=== PATIENT | female | born 1965 | race Caucasian/White ===

== ENCOUNTER 2018-01-19 18:17 | Observation (INO) ==
[2018-01-19] MEDS ORDERED: Ipratropium/Albuterol Neb 3 ML IH ONE (18:26)
[2018-01-19] MEDS ORDERED: methylPREDNISolone 125 MG/2 ML VIAL IVP ONE (18:26)
--- NOTE | 2018-01-19 18:30 | Emergency Department Note ---
Disposition Clinical Impression: Fibromyalgia Chest pain Qualifiers: Chest pain type: unspecified Qualified Code(s): R07.9 - Chest pain, unspecified Dyspnea Qualifiers: Dyspnea type: unspecified Qualified Code(s): R06.00 - Dyspnea, unspecified Disposition: Admitted As Inpatient Condition: Fair Time of Disposition: 20:10 SOB HPI - General Chief Complaint: ED Shortness of Breath/Dyspnea Stated Complaint: SILVINO Time Seen by Provider: 01/19/18 18:26 Source: patient Mode of arrival: ambulatory Limitations: no limitations Nursing Notes Reviewed: Yes Vital Signs Reviewed: Yes - History of Present Illness 52-year-old female with history COPD he has had progressive shortness of breath. States she has shortness of breath routinely but it is getting progressively worse. Has had a cough. She does not think she has had a fever. 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 illness Severity: moderate Consistency/Duration: constant Improves with: nothing Worsens with: exertion Known history of: COPD Associated symptoms: Reports: chest pain (Up into the neck) Treatment prior to arrival: none Cough Description: Involuntary Cough Frequency: Intermittent - Related Data Previous Rx's Medication Instructions Recorded Dicyclomine [Bentyl] 10 mg PO QID PRN #20 capsule 12/04/16 Ondansetron HCl [Zofran] 4 mg PO Q6HR PRN #20 tablet 12/04/16 Allergies Allergy/AdvReac Type Severity Reaction Status Date / Time No Known Allergies Allergy Verified 06/21/16 08:18 All systems ED: reviewed and negative except as stated. Constitutional: Denies: fever, chills, weakness, weight change Eyes: Denies: eye pain, eye discharge, vision change ENT ED: Denies: ear pain, throat pain, dental pain, hearing loss, epistaxis, congestion, dysphagia Cardiovascular: Reports: chest pain. Denies: palpitations, dyspnea on exertion , edema, syncope Respiratory: Reports: cough, dyspnea, wheezes. Denies: hemoptysis, stridor Gastrointestinal: Denies: abdominal pain, nausea, vomiting, diarrhea, constipation, hematemesis, melena, hematochezia Genitourinary: Denies: dysuria, frequency, hematuria, discharge Musculoskeletal: Denies: back pain, neck pain, arthralgia, myalgia Integumentary: Denies: rash, abrasion, lesions Neurological: Denies: headache, weakness, numbness, paresthesias, confusion, abnormal gait, vertigo Psychiatric: Denies: anxiety, depression, suicidal thoughts, homicidal thoughts , auditory hallucinations, visual hallucinations Endocrine: Denies: fatigue Hematological/Lymphatic: Denies: easy bleeding, easy bruising Allergic/Immunologic: Denies: facial swelling, urticaria Past Medical History - Past Medical History Medical history: Reports: COPD, coronary artery disease, diabetes, GERD, hyperlipidemia, hypertension Surgical history: Reports: appendectomy, other Psychiatric history: Reports: anxiety, depression - Social History Smoking Status: Current every day smoker Smokeless Tobacco Status: No Alcohol use: Reports: none Drug use: Reports: none Physical Exam - General Limitations: no limitations General appearance: alert - Head Head exam: atraumatic, normocephalic, normal inspection - Eye Eye exam: Present: normal appearance, PERRL, EOMI - ENT ENT exam: normal exam, normal oropharynx, mucous membranes moist - Neck Neck exam: Present: normal inspection, full ROM, trachea midline - Chest Chest inspection: Present: normal inspection, symmetric chest wall rise - Respiratory Respiratory exam: Present: wheezes - Cardiovascular Cardiovascular exam: Present: regular rate, normal rhythm, normal heart sounds - Abdominal Exam Abdominal exam: Present: soft, Non-Tender. Absent: tenderness, distention, guarding, rebound, rigidity - Extremities Exam Extremities exam: Present: normal inspection, full ROM. Absent: tenderness, pedal edema - Expanded Lower Extremity Exam Neurovascular/Tendon exam: Absent: motor deficit, sensory deficit, tendon deficit Gait: observed and normal - Back Exam Back exam: Present: normal inspection, full ROM. Absent: tenderness - Neurological Exam Neurological exam: Present: alert, oriented X3 - Psychiatric Psychiatric exam: Present: normal affect, normal mood - Skin Skin exam: Present: warm, dry, intact, normal color Course - Reevaluation(s) Reevaluation #1: 52-year-old diabetic who complains of some intermittent chest pain exertional dyspnea. She has had no recent cardiac workup. Initial troponin is negative the patient will be admitted. Time: 20:09 - Consultations Consultation #1: Discussed wh Dr. Marsh Time: 20:09 Consultation #2: [facility] CT abd pel with contrast, ordered and the hospitalist will check the results. Time: 20:22 Vital Signs Temperature 98.1 F 01/19/18 18:19 Pulse Rate 101 01/19/18 18:19 Respiratory Rate 18 01/19/18 18:19 Blood Pressure 165/80 01/19/18 18:19 O2 Sat by Pulse Oximetry 97 01/19/18 18:19 Temperature 98.1 F 01/19/18 18:19 Pulse Rate 101 01/19/18 18:19 Respiratory Rate 18 01/19/18 18:46 Blood Pressure 165/80 01/19/18 18:19 O2 Sat by Pulse Oximetry 96 01/19/18 18:46 Oxygen Delivery Oxygen Delivery Room Air Shortness of Breath/Dyspnea - Lab Data Lab results reviewed: Yes I reviewed the patient's lab results. Result diagrams: 01/19/18 19:36 01/19/18 19:36 Lab Results 01/19/18 01/19/18 01/19/18 Range/Units 19:36 19:36 19:36 WBC 8.3 (4.3-11.1) K/mcL RBC 4.12 (3.82-4.97) M/mcL Hgb 10.4 L (11.5-15.4) g/dL Hct 34.8 L (35.3-44.9) % MCV 84.5 (83.0-100.0) fL MCH 25.2 L (28.0-33.3) pg MCHC 29.9 L (31.6-35.5) g/dL RDW 17.4 H (11.5-14.5) % Plt Count 294 (140-400) K/mcL MPV 9.5 (9.4-12.4) fL Immature Gran % 0.4 (0-4) % Seg Neutrophils % 56.9 % Lymphocytes % 34.2 % Monocytes % 7.0 % Eosinophils % 1.0 % Basophils % 0.5 % Neutrophils # 4.8 (1.6-8.9) K/mcL Lymphocytes # 2.9 (0.6-4.6) K/mcL Monocytes # 0.6 (0.0-1.3) K/mcL Eosinophils # 0.1 (0.0-0.6) K/mcL Basophils # 0.0 (0.0-0.2) K/mcL Sodium 131 L (136-145) mEq/L Potassium 4.5 (3.5-5.1) mEq/L Chloride 99 (98-107) mEq/L Carbon Dioxide 25 (23-29) mEq/L BUN 13 (6-20) mg/dL Creatinine 0.75 (0.60-1.20) mg/dL Est GFR ( Amer) > 60 (> 60) Est GFR (Non-Af Amer) > 60 (> 60) BUN/Creatinine Ratio 17 (6-26) Glucose 145 H (70-105) mg/dL Calculated Osmolality 275 L (280-300) Lactic Acid 2.0 (0.5-2.2) mmol/L Calcium 9.7 (8.6-10.3) mg/dL Total Bilirubin (0.3-1.0) mg/dL Direct Bilirubin (0.0-0.2) mg/dL Indirect Bilirubin (0.0-1.2) mg/dL AST (13-39) Units/L ALT (7-52) Units/L Alkaline Phosphatase (34-104) Units/L Troponin I < 0.03 (< 0.04) ng/mL B-Natriuretic Peptide (Less than 100) pg/mL Serum Total Protein (6.4-8.9) g/dL Albumin (3.5-5.7) g/dL Globulin (2.4-3.5) g/dL Albumin/Globulin Ratio (1.1-2.2) Amylase (29-103) Units/L Lipase (11-82) Units/L 01/19/18 01/19/18 Range/Units 19:36 19:36 WBC (4.3-11.1) K/mcL RBC (3.82-4.97) M/mcL Hgb (11.5-15.4) g/dL Hct (35.3-44.9) % MCV (83.0-100.0) fL MCH (28.0-33.3) pg MCHC (31.6-35.5) g/dL RDW (11.5-14.5) % Plt Count (140-400) K/mcL MPV (9.4-12.4) fL Immature Gran % (0-4) % Seg Neutrophils % % Lymphocytes % % Monocytes % % Eosinophils % % Basophils % % Neutrophils # (1.6-8.9) K/mcL Lymphocytes # (0.6-4.6) K/mcL Monocytes # (0.0-1.3) K/mcL Eosinophils # (0.0-0.6) K/mcL Basophils # (0.0-0.2) K/mcL Sodium (136-145) mEq/L Potassium (3.5-5.1) mEq/L Chloride (98-107) mEq/L Carbon Dioxide (23-29) mEq/L BUN (6-20) mg/dL Creatinine (0.60-1.20) mg/dL Est GFR ( Amer) (> 60) Est GFR (Non-Af Amer) (> 60) BUN/Creatinine Ratio (6-26) Glucose (70-105) mg/dL Calculated Osmolality (280-300) Lactic Acid (0.5-2.2) mmol/L Calcium (8.6-10.3) mg/dL Total Bilirubin 0.3 (0.3-1.0) mg/dL Direct Bilirubin 0.0 (0.0-0.2) mg/dL Indirect Bilirubin 0.3 (0.0-1.2) mg/dL AST 22 (13-39) Units/L ALT 28 (7-52) Units/L Alkaline Phosphatase 79 (34-104) Units/L Troponin I (< 0.04) ng/mL B-Natriuretic Peptide 7 (Less than 100) pg/mL Serum Total Protein 7.4 (6.4-8.9) g/dL Albumin 4.3 (3.5-5.7) g/dL Globulin 3.1 (2.4-3.5) g/dL Albumin/Globulin Ratio 1.4 (1.1-2.2) Amylase 27 L (29-103) Units/L Lipase 49 (11-82) Units/L - Radiology Data Radiology results reviewed: Yes I reviewed the patient's radiology results. Chest X-Ray 01/19/18 18:26 IMPRESSION: No acute process. D/ / Thang De Leon MD / Thang De Leon MD Interpreting Provider: Thang De Leon MD Abdomen/Pelvis CT 01/19/18 21:30 IMPRESSION: No specific CT abnormality is appreciated. D/ / Naun Bledsoe / Naun Bledsoe Interpreting Provider: Naun Bledsoe - EKG Data EKG attestation: Yes I reviewed and interpreted this EKG. EKG shows normal: Reports: sinus rhythm Rate: Reports: normal Rhythm: Reports: NSR [place]/QRS: Reports: normal Interpretation: Reports: no acute changes
[2018-01-19 19:44] LABS: Basophils % 0.5 %; Eosinophils # 0.1 K/mcL (0.0-0.6); Hematocrit 34.8 % (35.3-44.9); Hemoglobin 10.4 g/dL (11.5-15.4); Immature Granulocytes % 0.4 % (0-4); Lymphocytes # 2.9 K/mcL (0.6-4.6); Lymphocytes % 34.2 %; Mean Corpuscular HGB Conc 29.9 g/dL (31.6-35.5); Mean Corpuscular Hemoglobin 25.2 pg (28.0-33.3); Mean Corpuscular Volume 84.5 fL (83.0-100.0); Mean Platelet Volume 9.5 fL (9.4-12.4); Monocytes # 0.6 K/mcL (0.0-1.3); Neutrophils # 4.8 K/mcL (1.6-8.9); Platelet Count 294 K/mcL (140-400); Red Blood Count 4.12 M/mcL (3.82-4.97); Red Cell Distribution Width 17.4 % (11.5-14.5); Segmented Neutrophils % 56.9 %
[2018-01-19 20:01] LABS: Albumin 4.3 g/dL (3.5-5.7); Albumin/Globulin Ratio 1.4 (1.1-2.2); Bilirubin,Indirect 0.3 mg/dL (0.0-1.2); Bilirubin,Total 0.3 mg/dL (0.3-1.0); Globulin 3.1 g/dL (2.4-3.5); Total Protein 7.4 g/dL (6.4-8.9)
[2018-01-19 20:03] LABS: Troponin I < 0.03 ng/mL (< 0.04)
[2018-01-19 20:06] LABS: BUN/Creatinine Ratio 17 (6-26); Blood Urea Nitrogen 13 mg/dL (6-20); Calcium 9.7 mg/dL (8.6-10.3); Carbon Dioxide 25 mEq/L (23-29); Chloride 99 mEq/L (98-107); Glucose 145 mg/dL (70-105); Osmolality,Calculated 275 (280-300); Potassium 4.5 mEq/L (3.5-5.1); Sodium 131 mEq/L (136-145); eGFR For African Americans > 60 (> 60); eGFR For Non-African Americans > 60 (> 60)
[2018-01-19] MEDS ORDERED: Acetaminophen 325 MG TABLET PO PRN (22:35)
[2018-01-19] MEDS ORDERED: *HR* HYDROcodone/Acet 5/325 mg TABLET PO PRN (22:35)
[2018-01-19] MEDS ORDERED: Naloxone 0.4 MG/ML INJ IVP PRN (22:35)
[2018-01-19] MEDS ORDERED: 0.9 % Sodium Chloride 1,000 ML IVC SCH (22:45)
--- NOTE | 2018-01-19 22:50 | Internal Med History&Physical ---
Date of Encounter: 01/20/18 Time of Encounter: 22:50 Assessment and Plan (1) Chest pain Current visit: Yes Status: Acute Qualifiers: Chest pain type: unspecified Qualified Code(s): R07.9 - Chest pain, unspecified (2) Dyspnea Current visit: Yes Status: Acute Patient has ongoing chest pain/pressure. She also has dyspnea. On examination she has polyphonic wheezes. Abdominal examination is benign Noted that CT abdomen: No acute findings. Plan: Admitted as an observation. We will treat as a COPD exacerbation. We will cycle troponins 3. Echocardiogram I have examined this patient in the emergency room #18. Plan of care expend the patient. She was understanding. Qualifiers: Dyspnea type: unspecified Qualified Code(s): R06.00 - Dyspnea, unspecified (3) Fibromyalgia Current visit: Yes Status: Acute Patient is known to have a fibromyalgia. She has her own medications and scheduling. We will try to follow those and get her medications updated. (4) DVT prophylaxis Current visit: Yes Status: Acute SCD Medical decision making: This patient is a moderate to severe risk of worsening in spite of being on appropriate medication due to the underlying chronic comorbid condition Internal Medicine - H&P: HPI Chief complaint: Chest pain/pressure Admitted From: Emergency Dept Plans for Post Hospital Care: Home History of present illness: Ms. Chu is a 52 year old female who came to emergency department for worsening chest pressure along with left-sided upper quadrant lower quadrant pain. Patient has ongoing abdominal pain for the past 6 months. In last 1 week noted that her pain was persistently getting worse and that was reason she came to emergency room for further evaluation. Patient was supposed to get her ultrasound carotid examination done this morning but she was under so much of chest pressure/abdominal pain that she could not make her appointment. Patient was concerned regarding this chest pressure and arthritis she came to the hospital for further evaluation. She was evaluated in the emergency room. Baseline labs were drawn. She underwent CT scan of the abdomen. She was hospitalized for chest pain to rule out ACS. Past Med Surg Social Fam HX - Past Medical History Medical history: COPD, coronary artery disease, diabetes, GERD, hyperlipidemia, hypertension Psychiatric history: anxiety, depression - Past Surgical History Surgical History: appendectomy, other - Social History Smoking Status: Current every day smoker Smokeless Tobacco Status: No Alcohol use: none Drug use: none - Family History Father Living Status: Cause of : [place] Hx Family Cardiac Disorders: Yes Mother Hx Family Cardiac Disorders: Yes (CAD, stents, stroke) Internal Medicine - H&P: Meds Dicyclomine [Bentyl] 10 mg PO QID PRN #20 capsule 12/04/16 [Rx] Ondansetron HCl [Zofran] 4 mg PO Q6HR PRN #20 tablet 12/04/16 [Rx] 3 Allergy/AdvReac Type Severity Reaction Status Date / Time No Known Allergies Allergy Verified 06/21/16 08:18 All Systems PM: A 10-system review of systems was performed and is negative for pertinent findings except as documented above in the HPI. - Constitutional Constitutional: no chills, no fever(s), no night sweats - EENT Eyes: no change in vision, no discharge, no pain, no photophobia Ears: no ear discharge, no ear pain, no tinnitus Nose, mouth and throat: no dysphagia, no nasal discharge, no neck pain, no sore throat - Cardiovascular Cardiovascular ROS IM: no chest pain, no diaphoresis, no dyspnea, no lightheadedness, no palpitations, no syncope - Respiratory Respiratory: no cough, no dyspnea, no wheezing, no excessive phlegm production - Gastrointestinal Gastrointestinal: no abdominal pain, no diarrhea, no hematemesis, no hematochezia, no melena, no nausea, no vomiting - Genitourinary Genitourinary: no change in urinary stream, no dysuria, no flank pain, no hematuria - Musculoskeletal Musculoskeletal ROS IM: no numbness, no tingling - Integumentary Integumentary IM: no rash, no unusual bruising - Neurological Neurological ROS: no confusion, no convulsions, no focal weakness, no numbness, no tingling, no tremor(s) - Hematologic/Lymphatic Hematologic/Lymphatic: no easy bruising - Constitutional Vitals: Temp Pulse Resp BP Pulse Ox 98.1 F 101 14 149/81 96 01/19/18 18:19 01/19/18 18:19 01/19/18 22:46 01/19/18 22:46 01/19/18 18:46 General appearance: Present: A&O X 3, pleasant, no acute distress, answers questions appropriately - Head Head exam: Present: atraumatic, normocephalic - Eye Eye exam: Present: PERRL, conjuntiva pink, sclera anicteric Pupils: Present: PERRL - Neck Neck exam general surgery: Present: supple, trachea midline. Absent: lymphadenopathy - Respiratory Respiratory exam: Present: CTAB. Absent: accessory muscle use, rales, rhonchi, wheezes - Cardiovascular Cardiovascular exam: Present: RRR, +S1, +S2. Absent: diastolic murmur, gallop, rubs, systolic murmur - GI/Abdominal GI/Abdominal exam: Present: normal bowel sounds, soft, no peritoneal signs. Absent: distended, tenderness Additional comments: Benign abdominal examination - Extremities Exam Extremities exam: Present: warm, radial pulses palpable and symmetrical. Absent : calf tenderness, cyanotic, pedal edema - Neurological Exam Neurological exam: Present: CN II-XII intact, oriented X3, no focal deficits. Absent: pronater drift, facial droop, speech deficit - Skin Skin exam: Present: dry, intact Internal Med - H&P Results - Labs CBC & Chem 7: 01/20/18 01:15 01/20/18 01:15 - Impressions ITS Impressions Abdomen/Pelvis CT 01/19/18 21:30 IMPRESSION: No specific CT abnormality is appreciated. D/ / Naun Bledsoe / Naun Bledsoe Interpreting Provider: Naun Bledsoe
[2018-01-19] MEDS ORDERED: cefTRIAXone 1,000 MG in Water for inj. (sterile) 20 ML 10 ML IVPB SCH (23:00)
[2018-01-19] MEDS ORDERED: Azithromycin 500 MG in D5% in Water 250 ML IVPB SCH (23:00)
[2018-01-19 23:43] VITALS: BP 154/90
[2018-01-20] MEDS ORDERED: Ipratropium/Albuterol Neb 3 ML IH SCH
[2018-01-20] MEDS ORDERED: MethylPREDNISolone 40 MG/ML VIAL IVP SCH
[2018-01-20] MEDS ORDERED: cefTRIAXone 1,000 MG in Water for inj. (sterile) 20 ML 10 ML IVPB SCH (01:00)
[2018-01-20] MEDS ORDERED: Nicotine 14 MG PATCH.TD24 TD SCH (01:00)
[2018-01-20 01:38] LABS: Eosinophils % 0.1 %; Hematocrit 36.5 % (35.3-44.9); Immature Granulocytes % 1.1 % (0-4); Lymphocytes % 11.4 %; Mean Corpuscular HGB Conc 30.1 g/dL (31.6-35.5); Mean Corpuscular Hemoglobin 25.1 pg (28.0-33.3); Mean Corpuscular Volume 83.3 fL (83.0-100.0); Mean Platelet Volume 9.8 fL (9.4-12.4); Monocytes % 0.7 %; Platelet Count 356 K/mcL (140-400); Red Blood Count 4.38 M/mcL (3.82-4.97); Red Cell Distribution Width 17.3 % (11.5-14.5); Segmented Neutrophils % 86.4 %
[2018-01-20 01:39] LABS: Basophils % 0.3 %; Lymphocytes # 1.2 K/mcL (0.6-4.6); Monocytes # 0.1 K/mcL (0.0-1.3); Neutrophils # 9.3 K/mcL (1.6-8.9)
[2018-01-20 01:43] LABS: Prothrombin Time 10.9 Seconds (9.4-12.1)
[2018-01-20] MEDS ORDERED: Dextrose Gel 15 GM/37.5 ML TUBE PO PRN ×2 (01:45)
[2018-01-20] MEDS ORDERED: *HR* Dextrose 50 % in Water (Syg) 50 ML SYRINGE IVP PRN (01:45)
[2018-01-20] MEDS ORDERED: D5% in Water 1,000 ML IVC PRN (01:45)
[2018-01-20 01:46] LABS: Activated Partial Thrombo Time 32.4 Seconds (26.0-36.0)
[2018-01-20 02:03] LABS: Alanine Aminotransferase 29 Units/L (7-52); Albumin 4.5 g/dL (3.5-5.7); Albumin/Globulin Ratio 1.5 (1.1-2.2); Alkaline Phosphatase 91 Units/L (34-104); Aspartate Amino Transferase 20 Units/L (13-39); BUN/Creatinine Ratio 19 (6-26); Bilirubin,Total 0.3 mg/dL (0.3-1.0); Blood Urea Nitrogen 15 mg/dL (6-20); Calcium 9.9 mg/dL (8.6-10.3); Carbon Dioxide 20 mEq/L (23-29); Chloride 99 mEq/L (98-107); Chol/HDL Ratio 9.8 (0-4.9); Cholesterol 373 mg/dL (< 200); Globulin 3.1 g/dL (2.4-3.5); Glucose 378 mg/dL (70-105); HDL Cholesterol 38 mg/dL (40-59); Magnesium 1.9 mg/dL (1.6-2.6); Osmolality,Calculated 286 (280-300); Potassium 5.1 mEq/L (3.5-5.1); Sodium 130 mEq/L (136-145); Total Protein 7.6 g/dL (6.4-8.9); Triglycerides 947 mg/dL (< 150); eGFR For African Americans > 60 (> 60); eGFR For Non-African Americans > 60 (> 60)
--- NOTE | 2018-01-20 02:21 | Discharge Summary ---
- NOTES TO OUTPATIENT PROVIDER Notes to Outpatient Provider: This patient left AGAINST MEDICAL ADVICE. I along with patient's RN Ms Barker and Charge nurse Ms Kamara went to her room. Explained to the patient at length regarding her risk/benefit/advantage/ disadvantage of signing AMA paperwork. Patient insisted to leave the hospital. She understood the risk of leaving hospital AGAINST MEDICAL ADVICE which can be heart attack/respiratory failure/. Patient signed AMA from and left the hospital Orders not resulted at time of discharge: Pending orders 01/19/18 22:46 EV echocardiogram Routine 01/20/18 07:30 Troponin I Q6H 01/20/18 13:30 Troponin I Q6H Date of Encounter: 01/20/18 Time of Encounter: 02:19 - Discharge Diagnosis (1) Chest pain Priority: Primary Status: Acute Qualifiers: Chest pain type: unspecified Qualified Code(s): R07.9 - Chest pain, unspecified (2) Dyspnea Priority: Primary Status: Acute Qualifiers: Dyspnea type: unspecified Qualified Code(s): R06.00 - Dyspnea, unspecified (3) Fibromyalgia Priority: Secondary Status: Acute (4) DVT prophylaxis Priority: Secondary Status: Acute Hospital course: Ms. Chu is a 52 year old female who came to emergency department for worsening chest pressure along with left-sided upper quadrant lower quadrant pain. Patient has ongoing abdominal pain for the past 6 months. In last 1 week noted that her pain was persistently getting worse and that was reason she came to emergency room for further evaluation. Patient was supposed to get her ultrasound carotid examination done this morning but she was under so much of chest pressure/abdominal pain that she could not make her appointment. Patient was concerned regarding this chest pressure and arthritis she came to the hospital for further evaluation. She was evaluated in the emergency room. Baseline labs were drawn. She underwent CT scan of the abdomen. She was hospitalized for chest pain to rule out ACS. Hospital course. Patient was hospitalized. Order was placed. She was treated as a COPD exacerbation along with chest pain to rule out ACS protocol. I was called by MARCO ANTONIO Barker around 2 AM. I was told that patient would like to leave AGAINST MEDICAL ADVICE. I along with patient's RN Ms Barker and Charge nurse Ms Kamara went to her room. Explained to the patient at length regarding her risk/benefit/advantage/ disadvantage of signing AMA paperwork Patient insisted to leave the hospital She understood the risk of leaving hospital AGAINST MEDICAL ADVICE which can be heart attack/respiratory failure/. Patient signed AMA from and left the hospital. I was informed by MARCO ANTONIO Barker that patient's troponin is a critical value now. Her first troponin was negative. Her second troponin is 0.06. Patient already left the hospital. I personally called patient on her cell phone [phone] at 2:27 am. I spoke with the patient. I informed patient about her critical troponin. I explained patient that this can be life-threatening. I requested her to come back so that we can monitor her very closely. Patient refused to come back and insisted that she is going to go home. I informed patient that if she changes her mind she should go to the emergency room and we will be happy to take care of her. Patient informed me that she will think about it. - Time Spent with Patient Total time spent providing and/or coordinating discharge services: - Discharge Medications Home Medications: Dicyclomine [Bentyl] 10 mg PO QID PRN #20 capsule 12/04/16 [Rx] Ondansetron HCl [Zofran] 4 mg PO Q6HR PRN #20 tablet 12/04/16 [Rx] Allergies/Adverse Reactions: 3 Allergy/AdvReac Type Severity Reaction Status Date / Time No Known Allergies Allergy Verified 06/21/16 08:18 Date of admission: 01/19/18 20:24 Primary care physician: Paola Engel, Discharging clinician: Luis Marsh - Constitutional Vitals: Temp Pulse Resp BP Pulse Ox 97.9 F 93 16 154/90 97 01/19/18 23:41 01/19/18 23:41 01/19/18 23:41 01/19/18 23:41 01/19/18 23:41 General appearance: Present: A&O X 3, pleasant, no acute distress, answers questions appropriately - Head Head exam: Present: atraumatic, normocephalic - Eye Eye exam: Present: PERRL, conjuntiva pink, sclera anicteric Pupils: Present: PERRL - Neck Neck exam general surgery: Present: supple, trachea midline. Absent: lymphadenopathy - Respiratory Respiratory exam: Present: CTAB. Absent: accessory muscle use, rales, rhonchi, wheezes - Cardiovascular Cardiovascular exam: Present: RRR, +S1, +S2. Absent: diastolic murmur, gallop, rubs, systolic murmur - GI/Abdominal GI/Abdominal exam: Present: normal bowel sounds, soft, no peritoneal signs. Absent: distended, tenderness - Extremities Exam Extremities exam: Present: warm, radial pulses palpable and symmetrical. Absent : calf tenderness, cyanotic, pedal edema - Neurological Exam Neurological exam: Present: CN II-XII intact, oriented X3, no focal deficits. Absent: pronater drift, facial droop, speech deficit - Skin Skin exam: Present: dry, intact - Patient Status Disposition: Left Against Medical Advice Condition: Fair Functional capacity at discharge: independent ambulation Overall status at discharge: patient is not back to baseline - Discharge Instructions Follow Up With: Paola Engel MD [Primary Care Provider] - - Diet and Activity Activity: other Diet: diabetic diet, low fat, low cholesterol
[2018-01-20] MEDS ORDERED: Insulin LISPRO 300 UNITS/3 ML VIAL SQ SCH (07:30)
--- NOTE | 2018-01-22 20:04 | Electrocardiograph Report ---
[place] [id number] Test Date: 2018-01-19 Pat Name: Dawna Chu Department: 104 Room: 3B Gender: F Cord Maker: OTIS : 1965 Requested By: Jose Franz Order Number: [id number] Reading MD: Rach Yusuf Measurements Intervals [place] Rate: 82 P: 1 RI: 152 QRS: 75 QRSD: 76 T: 45 QT: 326 QTc: 365 Interpretive Statements SINUS RHYTHM Electronically Signed On 01-22-2018 20:02:57 EST by Rach Yusuf
== END 2018-01-20 02:00 | disposition left against medical advice (07) ==
LOC: 3BNU 18:17 → EMEROO 18:17 → 3BNU 23:00
PROVIDERS: ADMIT Internal Medicine; ATTEND Registered Nurse

== ENCOUNTER 2018-06-27 06:06 | Inpatient (IN) ==
[2018-06-27] MEDS ORDERED: CeFAZolin Syr 2,000MG/20 ML 2,000 MG/20 ML SYRINGE IVPB ONE (06:38)
[2018-06-27] MEDS ORDERED: Albuterol 2.5 MG/3 ML NEBULIZER IH ONE (06:38)
[2018-06-27] MEDS ORDERED: Albuterol 2.5 MG/3 ML NEBULIZER ONE (06:42)
[2018-06-27] MEDS ORDERED: Heparin 1,000 UNITS/500 mL 500 ML ONE (06:52)
[2018-06-27] MEDS ORDERED: Heparin 1,000 UNITS/500 mL 1,500 ML ONE (07:12)
[2018-06-27] MEDS ORDERED: Lidocaine 1% 20 ML MDV ONE (07:12)
--- NOTE | 2018-06-27 07:19 | Anesthesia Evaluation PreOp ---
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: Other (chronic back pain) Other Medical History: Hepatic (fatty liver), Diabetes Type II, GERD, Other ( anxiety) Anesthesia History: No Prior Anesthetic Complications, Past Anesthesia Alcohol Use: none Drug use: prescription drug abuse Medications and Allergies Albuterol Sulfate [Albuterol Inhaler] 1 puff IH Q6HR PRN 06/21/18 [History] Albuterol Sulfate [Proair Hfa] 2 puff IH Q4H PRN 06/21/18 [History] Alprazolam [Xanax] 2 mg PO Q8H PRN 06/21/18 [History] Aspirin [Adult Aspirin Regimen] 81 mg PO DAILY 06/21/18 [History] Liraglutide [Victoza 2-Juve] 1.8 mg SQ DAILY 06/21/18 [History] Losartan Potassium [Cozaar] 0.5 tab PO DAILY 06/21/18 [History] Metformin HCl [Glumetza] 1,000 mg PO BID 06/21/18 [History] Omeprazole [PriLOSEC] 40 mg PO DAILY 06/21/18 [History] Sertraline [Zoloft] 100 mg PO DAILY 06/21/18 [History] Gabapentin [Neurontin] 800 mg PO TID 06/27/18 [History] 3 Allergy/AdvReac Type Severity Reaction Status Date / Time No Known Allergies Allergy Verified 06/21/16 08:18 - Meds/Allergy Pre-op Review Medications Reviewed: Yes Allergies Reviewed: Yes Beta Blockers on Current Med List: No Anesthesia Results - Labs Laboratory Tests 06/13/18 06/13/18 06/13/18 13:07 13:07 13:07 WBC 8.2 Hgb 10.1 L Hct 32.6 L Plt Count 279 PT 9.3 L INR 0.8 APTT 34.0 Sodium 137 Potassium 3.8 BUN 9 Creatinine 0.66 - Imaging EKG: report reviewed (06/13/2018 SINUS RHYTHM) Additional studies: 09/22/2015 Stress Impression: Perfusion imaging was negative for ischemia or infarct. Pharmacologic ECG was negative for ischemia at the level of heart rate achieved. Patient had chest pain with pharmacologic stress. Normal hemodynamic response. No arrhythmias noted with stress. Gated EF = 68%. Recommend clinical correlation. Anesthesia Exam O2 Sat Height 1.68 m Weight 92.533 kg O2 Sat by Pulse Oximetry 95 O2 Sat by Pulse Oximetry 95 Vital Signs Temp Pulse Resp BP Pulse Ox 98.4 F 97 18 125/66 95 06/27/18 06:57 06/27/18 06:57 06/27/18 06:57 06/27/18 06:57 06/27/18 06:57 Blood Glucose* 195 Height: 5'6'' Weight: 204 lbs NPO (# of Hours): 8 Pain Scale: 0 Pain Scale Used: Numeric (1 - 10) - HEENT Pupil (Motor): EOMI Mallampati: II Teeth: Normal, Missing Oral Opening: Greater than 3 - WELFARE INVESTIGATOR LOC: Oriented WELFARE INVESTIGATOR Motor: Normal RUE, Normal LUE, Normal RLE, Normal Face, Deficit LLE WELFARE INVESTIGATOR Sensory: Normal: RUE, LUE, Face, Deficit: RLE, LLE - Cardiac Rhythm: Regular Murmur: None - Pulmonary Breath Sounds: bilateral Clear Respiratory Effort: Symmetrical Anesthesia Assess/Plan ASA Score: 3 Modified [place] Scale for Level of Consciousness: Cooperative, oriented, and tranquil Anesthetic Plan: General Monitoring Plan: Standard Monitors, A-Line Recovery Plan: PACU
--- NOTE | 2018-06-27 07:27 | History & Physical Report ---
Date of Encounter: 06/27/18 Time of Encounter: 07:26 24 Hour HP Update - Instructions Instructions: If the History and Physical is less than 30 days old and was completed prior to A.M. admission and or procedure and has NOT been updated on calendar day of procedure please complete this update prior to performing procedure. - Update Patient reports changes in Medical Condition: No Changes in examination, assessment, or condition: No Changes in Medication: No Preop tests/diagnostics Reviewed: Yes Pre-Op MRSA Screen: Negative Surgery Remains Indicated: Yes Consent for Planned Operative Procedure(s) Verified: Yes - Pre-Operative Checklist Preoperative Checklist Indicated: Yes Prophylactic Antibiotic Ordered: Yes Home Medications Include Beta Martinez: No Beta Martinez Taken Today (Day of Surgery): No Beta Martinez Taken Yesterday (Day Prior to Surgery): No Is VTE Prophylaxis Indicated?: Yes
[2018-06-27] MEDS ORDERED: KETAMINE HCL 50 MG/ML SYRINGE IV ONE (07:32)
[2018-06-27] MEDS ORDERED: Dexmedetomidine HCl 400 MCG/100 ML MLS IVC ONE (07:33)
[2018-06-27] MEDS ORDERED: Acetaminophen IV 1,000 MG/100 ML INFUS..BTL ONE (07:33)
[2018-06-27] MEDS ORDERED: *HR* Midazolam HCl 2 MG/2 ML VIAL ONE ×2 (07:37→07:50)
[2018-06-27] MEDS ORDERED: *HR* Propofol 200 MG/20 ML VIAL IVP ONE ×2 (07:37→08:37)
[2018-06-27] MEDS ORDERED: Lidocaine -MPF 2% 2 ML VIAL ONE ×2 (07:38→07:48)
[2018-06-27] MEDS: Ringers Solution, Lactated 1,000 ML IVC SCH ×3 (07:45→11:48)
[2018-06-27] MEDS ORDERED: ceFAZolin 1,000 MG, Sodium Chloride IRRigation 1,000 ML IR ONE (07:45)
[2018-06-27] MEDS ORDERED: *HR* Succinylcholine 200 MG/10 ML VIAL IVP ONE (08:00)
[2018-06-27] MEDS ORDERED: *HR* Rocuronium Bromide 50 MG/5 ML VIAL ONE (08:09)
[2018-06-27] MEDS ORDERED: Ondansetron 4 MG/2 ML VIAL ONE (08:16)
[2018-06-27] MEDS ORDERED: Dexamethasone 4 MG/ML VIAL ONE (08:16)
[2018-06-27] MEDS ORDERED: *HR* Phenylephrine 10 MG/ML VIAL ONE (08:19)
[2018-06-27] MEDS ORDERED: *HR* Heparin 5,000 UNIT/ML VIAL ONE ×2 (09:00→10:22)
[2018-06-27] MEDS ORDERED: *HR* Promethazine 25 MG/ML VIAL IVP PRN (09:01)
[2018-06-27] MEDS ORDERED: *HR* Labetalol 20 MG/4 ML SYRINGE IVP PRN (09:01)
[2018-06-27] MEDS ORDERED: *HR* HYDROmorphone (PF) 1 MG/ML SYRINGE IVP PRN (09:01)
[2018-06-27] MEDS ORDERED: *HR* OxyCODONE Immed Rel 5 MG TABLET PO PRN (09:01)
[2018-06-27] MEDS ORDERED: Ketorolac 30 MG/ML VIAL ONE (09:35)
[2018-06-27] MEDS ORDERED: Neostigmine Methylsulfate 3 MG/3 ML SYRINGE ONE (10:53)
[2018-06-27] MEDS ORDERED: *HR* Metoprolol 5 MG/5 ML VIAL IVP ONE (11:21)
--- NOTE | 2018-06-27 11:31 | Operative Note ---
Date of procedure: 06/27/18 Pre-op diagnosis: right carotid stenosis Post-op diagnosis: same Procedure: right carotid endarterectomy with 8 Fr shunt and bovine patch angioplasty Complications: none Anesthesia: GETA Surgeon: Jacinto Roth Was there an activity assistant present: No Estimated blood loss (cc): 100 Specimen: 0 Condition: stable Disposition: PACU Procedure in Detail: History Dawna Chu is a 52-year-old white female who was seen in the outpatient clinic for carotid disease. Patient had abnormal carotid duplex scan. This then led to a carotid artery angiogram which demonstrated bilateral high-grade carotid stenosis greater on the right side than on the left. The patient now comes to the operating room today for surgery for the first of 2 carotid endarterectomies. Procedure After informed consent was obtained the patient was taken the operating room. General endotracheal anesthesia was established under arterial line pressure monitoring. The right neck was sterilely prepped and draped. A timeout protocol was observed. An oblique incision was then made parallel to the anterior border of the right sternocleidomastoid muscle. Dissection was carried down to the carotid sheath. This was then opened. The nervous structures were identified and preserved. The patient had an unusual configuration with the external carotid artery and its branches placed in a posterior location. In order to correctly dissect and expose the vessel the superior thyroid artery needed to be divided in order to allow rotation of the bulb and common carotid artery. With this done appropriate control was obtained as well as exposure. Vessel loops were placed proximally and the umbilical tape placed proximally. Heparin was given in a dose of 5000 units. After a three-minute delay the vessels were clamped with the internal carotid artery clamped first. Using an 11 blade knife and Moore scissors the artery was opened. An 8-Serbian shunt was then inserted atraumatically. Patency of the shunt was confirmed by the use of intraoperative Doppler. Evaluation of the plaque revealed a high-grade calcific and heterogeneous plaque at the orifice of the right internal carotid artery as depicted by the angiogram. This stenosis was in excess of 90%. The endarterectomy was then begun at the distal aspect of the common carotid artery. Control was obtained and a access plane was then dissected and established circumferentially. Because of the amount of plaque posteriorly the the proximal needed to be extended in order to safely and adequately remove the plaque. Therefore dissection was made around the omohyoid muscle. Controls obtained proximal to the inferior border of the omohyoid muscle. The abnormal hyoid muscle was retracted but not divided. This allowed adequate exposure so that the arteriotomy could be continued more proximally. This allowed appropriate visualization of the plaque and the endarterectomy proximally could then be safely completed. With this accomplished attention was directed distally. As noted above this. Thyroid artery was ligated and divided. The external carotid artery orifice was then endarterectomized. The endarterectomy was then carried up onto the internal carotid artery. Dissection was carried to the endpoint. It was smooth. No tacking sutures were necessary. The bed of the vessels and inspected for residual debris. After this was done a bovine pericardial patch was utilized and was sewn into position using 2 6-0 Prolene sutures. Leaving a small space open on the suture line the 8-Serbian shunt was clamped and divided and removed. The internal was allowed to backbleed and was reclamped. The final few sutures were then placed. The external and common carotid artery were opened and finally the internal was reopened. The patient tolerated this well. There is no periprocedural hemodynamic distress. The wounds were then irrigated. Hemostasis was achieved. A superficial cervical block using half percent Marcaine was performed. The wound was then closed in layers using absorbable suture. There were no intraoperative complications. The patient awoke from anesthesia well and was neurologically intact. She was then transported from the operating room to the recovery room in stable condition following extubation.
--- NOTE | 2018-06-27 12:04 | Anesthesia Evaluation Post Op ---
Date of Encounter: 06/27/18 Time of Encounter: 12:03 - Vital Signs Vital Signs: Vital Signs/O2 Sat, Most Current Temp Pulse Resp BP Pulse Ox 98.9 F 99 17 128/51 93 06/27/18 11:30 06/27/18 11:50 06/27/18 11:50 06/27/18 11:50 06/27/18 11:50 - Lungs Lungs: Clear Ascult./Percussion - Airway Airway: Non-obstructed - Cardiovascular Regular Rate - Mental Status Mental Status: Alert & Oriented, Answers Appropriately - Nausea Vomiting Nausea Vomiting: Not Present - Hydration Hydration: Ice chips, Huerta catheter - Discharge PostOp Status: Transfer Patient to floor
[2018-06-27] MEDS ORDERED: ALPRAZolam 0.5 MG TABLET PO PRN (12:18)
[2018-06-27] MEDS ORDERED: Naloxone 0.4 MG/ML INJ IVP PRN (12:18)
[2018-06-27] MEDS ORDERED: Acetaminophen 325 MG TABLET PO PRN (12:18)
[2018-06-27] MEDS ORDERED: Ondansetron 4 MG/2 ML VIAL IVP PRN (12:18)
[2018-06-27] MEDS: *HR* Metoprolol 5 MG/5 ML VIAL IVP SCH ×2 (13:26→18:00)
[2018-06-27] MEDS: Gabapentin 400 MG CAPSULE PO SCH ×2 (15:53→20:49)
[2018-06-27] MEDS: *HR* Metformin 500 MG TABLET PO SCH (16:07)
[2018-06-27] MEDS: traMADol 50 MG TABLET PO PRN ×2 (16:07→22:28)
[2018-06-27] MEDS: Ibuprofen 600 MG TABLET PO PRN (20:49)
[2018-06-27] MEDS: Nicotine 21 MG PATCH.TD24 TD SCH (20:49)
[2018-06-28] MEDS: *HR* Metoprolol 5 MG/5 ML VIAL IVP SCH ×3 (00:12→11:45)
[2018-06-28] MEDS: traMADol 50 MG TABLET PO PRN ×2 (04:43→11:45)
[2018-06-28 04:48] LABS: Basophils % 0.2 %; Eosinophils % 0.4 %; Hematocrit 26.1 % (35.3-44.9); Hemoglobin 8.1 g/dL (11.5-15.4); Immature Granulocytes % 0.6 % (0-4); Lymphocytes # 2.6 K/mcL (0.6-4.6); Lymphocytes % 23.9 %; Mean Corpuscular Hemoglobin 26.4 pg (28.0-33.3); Mean Platelet Volume 9.7 fL (9.4-12.4); Monocytes # 0.9 K/mcL (0.0-1.3); Monocytes % 8.3 %; Neutrophils # 7.3 K/mcL (1.6-8.9); Platelet Count 239 K/mcL (140-400); Red Blood Count 3.07 M/mcL (3.82-4.97); Red Cell Distribution Width 17.2 % (11.5-14.5); Segmented Neutrophils % 66.6 %
[2018-06-28 05:07] LABS: BUN/Creatinine Ratio 18 (6-26); Blood Urea Nitrogen 9 mg/dL (6-20); Calcium 8.5 mg/dL (8.6-10.3); Carbon Dioxide 24 mEq/L (23-29); Chloride 107 mEq/L (98-107); Glucose 125 mg/dL (70-105); Osmolality,Calculated 300 (280-300); Potassium 3.5 mEq/L (3.5-5.1); Sodium 145 mEq/L (136-145); eGFR For Non-African Americans > 60 (> 60)
[2018-06-28] MEDS: Ibuprofen 600 MG TABLET PO PRN (06:28)
[2018-06-28] MEDS: Gabapentin 400 MG CAPSULE PO SCH (07:56)
[2018-06-28] MEDS: Nicotine 21 MG PATCH.TD24 TD SCH (07:56)
[2018-06-28] MEDS: *HR* Metformin 500 MG TABLET PO SCH (07:56)
[2018-06-28] MEDS ORDERED: Aspirin Enteric Coated 81 MG Tablet PO SCH (09:00)
[2018-06-28] MEDS ORDERED: (Liraglutide [Victoza 2-Pak] 1.8 MG) SQ SCH (09:00)
[2018-06-28 11:16] VITALS: BP 174/74
--- NOTE | 2018-06-28 12:11 | Discharge Summary ---
Orders not resulted at time of discharge: Pending orders 06/26/18 Red Blood Cells [BBK] Routine Date of Encounter: 06/28/18 Time of Encounter: 12:08 - Discharge Diagnosis (1) Carotid artery disease Priority: Primary Status: Acute Comments: Patient has bilateral carotid artery stenosis. Right carotid endarterectomy was performed at this admission. Anticipate patient will have left carotid endarterectomy in approximately 3 weeks. Qualifiers: Carotid artery disease type: stenosis Laterality: bilateral Qualified Code(s): I65.23 - Occlusion and stenosis of bilateral carotid arteries (2) Fibromyalgia Priority: Secondary Status: Chronic Comments: Patient has history of fibromyalgia - Hospital Course Hospital course: Ms. Chu is a 52 year old female With abnormal carotid duplex scan. This led to an angiogram which confirmed bilateral carotid artery stenosis. The right side was more critical and so therefore the patient underwent a right carotid endarterectomy during this admission. The patient tolerated the procedure well. She had no periprocedural complications. Her right neck incision was clean and dry and healing well. She was felt fit for discharge on the afternoon of postoperative day #1. Patient will return to the office in 2 weeks. Anticipate left carotid endarterectomy in 3 weeks. - Time Spent with Patient Total time spent providing and/or coordinating discharge services: - Discharge Medications Home Medications: Albuterol Sulfate [Proair Hfa] 2 puff IH Q4H PRN 06/21/18 [History] Alprazolam [Xanax] 0.5 mg PO Q8H PRN 06/21/18 [History] Aspirin [Adult Aspirin Regimen] 81 mg PO DAILY 06/21/18 [History] Liraglutide [Victoza 2-Juve] 1.8 mg SQ DAILY 06/21/18 [History] Losartan Potassium [Cozaar] 0.5 tab PO DAILY 06/21/18 [History] Omeprazole [PriLOSEC] 40 mg PO DAILY 06/21/18 [History] Sertraline [Zoloft] 100 mg PO DAILY 06/21/18 [History] Albuterol Neb [Proventil Neb] 2.5 mg IH Q6H PRN 06/27/18 [History] Gabapentin [Neurontin] 800 mg PO TID 06/27/18 [History] Metformin HCl 1,000 mg PO BID 06/27/18 [History] Allergies/Adverse Reactions: 3 Allergy/AdvReac Type Severity Reaction Status Date / Time No Known Allergies Allergy Verified 06/21/16 08:18 Date of admission: 06/27/18 12:14 Primary care physician: Paola Engel, Consults: None Procedure(s) Performed: Right carotid endarterectomy with patch angioplasty Discharging clinician: Jacinto Roth Anticipated date of discharge: 06/28/18 Exam Vital Signs, Last 4 Hours Temp Pulse Resp BP Pulse Ox 06/28/18 11:12 98.4 F 79 16 174/74 97 06/28/18 08:12 73 General: Present: Conversant, No Apparent Distress, Well developed, Well nourished HEENT: Present: Atraumatic, Normocephaly, Trachea midline Neck: Absent: JVD, Tracheal deviation Cardiac: Present: Reg Rate and Rhythm Lungs: Present: Normal Breath Sounds Neuro: Present: Alert and responsive, No focal deficits noted, Cranial nerves grossly intact Vascular: Present: Surgical incisions (Right neck incision is clean and dry) - Patient Status Disposition: Home, Self-Care Condition: Good Functional capacity at discharge: independent ambulation Overall status at discharge: patient is progressing back to baseline - Discharge Instructions Follow Up With: Paola Engel MD [Primary Care Provider] - 07/08/18 9:45 am Jacinto Roth MD [Partnered Physician] - 07/10/18 8:30 am Additional Instructions: Keep right neck incision dry for total of 5 days following surgery No lifting greater than 10 pounds. No automobile driving. No manual labor. Use ice pack on right neck for next 2 days at home. Using incentive spirometer at home for the next 2 weeks with a goal of 10 times an hour while awake. Resume usual home medications. - Diet and Activity Activity: increase activity as tolerated Diet: diabetic diet - VTE Documentation of Mechanical Device: Intermittent pneumatic compression device
== END 2018-06-28 13:24 | disposition home or self-care (01) | DRG 24 ==
LOC: SAMDAY 06:06 → 2NNU 12:14
PROVIDERS: ADMIT Surgery Vascular Surgery; ATTEND Surgery Vascular Surgery

== ENCOUNTER 2018-07-18 09:06 | Inpatient (IN) ==
[~2018-07-18 09:06] MED LIST: ceFAZolin 1,000 MG, Sodium Chloride IRRigation 1,000 ML IR ONE
[2018-07-18] MEDS ORDERED: Albuterol 2.5 MG/3 ML NEBULIZER IH ONE (09:37)
[2018-07-18] MEDS ORDERED: CeFAZolin Syr 2,000MG/20 ML 2,000 MG/20 ML SYRINGE IVPB ONE (09:37)
--- NOTE | 2018-07-18 09:46 | History & Physical Report ---
Date of Encounter: 07/18/18 Time of Encounter: 09:45 24 Hour HP Update - Instructions Instructions: If the History and Physical is less than 30 days old and was completed prior to A.M. admission and or procedure and has NOT been updated on calendar day of procedure please complete this update prior to performing procedure. - Update Patient reports changes in Medical Condition: No Changes in examination, assessment, or condition: No Changes in Medication: No Preop tests/diagnostics Reviewed: Yes Surgery Remains Indicated: Yes Consent for Planned Operative Procedure(s) Verified: Yes - Pre-Operative Checklist Preoperative Checklist Indicated: Yes Prophylactic Antibiotic Ordered: Yes Home Medications Include Beta Martinez: Yes Beta Martinez Taken Today (Day of Surgery): Yes Beta Martinez Taken Yesterday (Day Prior to Surgery): Yes Is VTE Prophylaxis Indicated?: Yes
--- NOTE | 2018-07-18 09:56 | Anesthesia Evaluation PreOp ---
Date of Encounter: 07/18/18 Time of Encounter: 10:04 - Past History Planned Operation: LEFT CEA Cardiac History: HTN, Hyperlipidemia, Other (2015: EF 65%, NORMAL TTE, NEGATIVE STRESS TEST) Pulmonary History: COPD Other Medical History: Diabetes Type II, GERD, Other (ANEMIA) Anesthesia History: No Prior Anesthetic Complications, Past Anesthesia (RIGHT CEA 06/27/18) Alcohol Use: none Drug use: prescription drug abuse (STARTED SUBOXONE 2 WEEKS AGO, TAKING 1/2 OF 1 /2 PILL FOR RESTLESS LEG) Medications and Allergies Albuterol Sulfate [Proair Hfa] 2 puff IH Q4H PRN 06/21/18 [History] Alprazolam [Xanax] 0.5 mg PO Q8H PRN 06/21/18 [History] Aspirin [Adult Aspirin Regimen] 81 mg PO DAILY 06/21/18 [History] Liraglutide [Victoza 2-Juve] 1.8 mg SQ DAILY 06/21/18 [History] Losartan Potassium [Cozaar] 0.5 tab PO DAILY 06/21/18 [History] Omeprazole [PriLOSEC] 40 mg PO DAILY 06/21/18 [History] Sertraline [Zoloft] 100 mg PO DAILY 06/21/18 [History] Albuterol Neb [Proventil Neb] 2.5 mg IH Q6H PRN 06/27/18 [History] Gabapentin [Neurontin] 800 mg PO TID 06/27/18 [History] Metformin HCl 1,000 mg PO BID 06/27/18 [History] Cephalexin [Keflex] 500 mg PO QID #28 capsule 07/04/18 [Rx] 3 Allergy/AdvReac Type Severity Reaction Status Date / Time No Known Allergies Allergy Verified 06/21/16 08:18 - Meds/Allergy Pre-op Review Medications Reviewed: Yes (TOOK SUBOXONE THIS AM) Allergies Reviewed: Yes Anesthesia Results - Labs Laboratory Last Values WBC 10.2 K/mcL (4.3-11.1) 07/15/18 15:24 RBC 3.80 M/mcL (3.82-4.97) L 07/15/18 15:24 Hgb 10.0 g/dL (11.5-15.4) L 07/15/18 15:24 Hct 32.8 % (35.3-44.9) L 07/15/18 15:24 MCV 86.3 fL (83.0-100.0) 07/15/18 15:24 MCH 26.3 pg (28.0-33.3) L 07/15/18 15:24 MCHC 30.5 g/dL (31.6-35.5) L 07/15/18 15:24 RDW 16.7 % (11.5-14.5) H 07/15/18 15:24 Plt Count 362 K/mcL (140-400) 07/15/18 15:24 MPV 9.9 fL (9.4-12.4) 07/15/18 15:24 Immature Gran % 0.6 % (0-4) 07/15/18 15: Seg Neutrophils % 66.8 % 07/15/18 15:24 Lymphocytes % 24.9 % 07/15/18 15:24 Monocytes % 6.8 % 07/15/18 15:24 Eosinophils % 0.6 % 07/15/18 15: Basophils % 0.3 % 07/15/18 15:24 Neutrophils # 6.8 K/mcL (1.6-8.9) 07/15/18 15:24 Lymphocytes # 2.5 K/mcL (0.6-4.6) 07/15/18 15:24 Monocytes # 0.7 K/mcL (0.0-1.3) 07/15/18 15:24 Eosinophils # 0.1 K/mcL (0.0-0.6) 07/15/18 15: Basophils # 0.0 K/mcL (0.0-0.2) 07/15/18 15:24 PT 10.8 Seconds (9.4-12.1) 07/15/18 15:24 INR 1.0 07/15/18 15:24 APTT 35.6 Seconds (26.0-36.0) 07/15/18 15:24 Sodium 133 mEq/L (136-145) L 07/15/18 15:24 Potassium 4.7 mEq/L (3.5-5.1) 07/15/18 15:24 Chloride 98 mEq/L (98-107) 07/15/18 15:24 Carbon Dioxide 29 mEq/L (23-29) 07/15/18 15:24 BUN 14 mg/dL (6-20) 07/15/18 15:24 Creatinine 0.74 mg/dL (0.60-1.20) 07/15/18 15:24 Est GFR ( Amer) > 60 (> 60) 07/15/18 15:24 Est GFR (Non-Af Amer) > 60 (> 60) 07/15/18 15:24 BUN/Creatinine Ratio 19 (6-26) 07/15/18 15:24 Glucose 177 mg/dL (70-105) H 07/15/18 15:24 Calculated Osmolality 281 (280-300) 07/15/18 15:24 Calcium 9.7 mg/dL (8.6-10.3) 07/15/18 15:24 Blood Type O POSITIVE 07/15/18 15:24 Antibody Screen NEGATIVE 07/15/18 15:24 Crossmatch See Detail 07/15/18 15:24 - Imaging EKG: report reviewed (SINUS RHYTHM) Additional studies: CAROTID ANGIOGRAPHY 06/21/2018l: Proximal Left Internal Carotid Stenosis: 90% Proximal Right Internal Carotid Stenosis: 90% Anesthesia Exam O2 Sat Height 1.68 m Weight 92.079 kg BMI 33 Vital Signs Temp Pulse Resp BP Pulse Ox 98.5 F 86 18 97/57 95 07/18/18 09:53 07/18/18 09:53 07/18/18 09:53 07/18/18 09:53 07/18/18 09:53 Blood Glucose* 226 NPO (# of Hours): 8 - HEENT Pupil (Motor): Pupils equal Mallampati: II Teeth: Normal Oral Opening: Greater than 3 - [employer]TE [employer] LOC: Oriented [employer] Motor: Normal RUE, Normal LUE, Normal RLE, Normal LLE, Normal Face - Cardiac Rhythm: Regular - Pulmonary Breath Sounds: bilateral Clear Respiratory Effort: Symmetrical Anesthesia Assess/Plan ASA Score: 4 Modified Goldston Scale for Level of Consciousness: Cooperative, oriented, and tranquil Anesthetic Plan: General Monitoring Plan: Standard Monitors, A-Line Recovery Plan: PACU Anes Supervising Prov Stmt: PATIENT ADVISED THAT IT MIGHT BE DIFFICULT TO CONTROL HER PAIN GIVEN THE RECENT SUBOXONE INTAKE. [facility] LIST NOT UPDATED THIS VISIT PATIENT'S CHART AND CURRENT MEDICATIONS REVIEWED
[2018-07-18] MEDS ORDERED: Ondansetron 4 MG/2 ML VIAL ONE (10:00)
[2018-07-18] MEDS ORDERED: *HR* Remifentanil 1 MG VIAL IVP ONE ×2 (10:00→14:42)
[2018-07-18] MEDS ORDERED: *HR* Rocuronium Bromide 50 MG/5 ML VIAL ONE (10:00)
[2018-07-18] MEDS ORDERED: Neostigmine Methylsulfate 3 MG/3 ML SYRINGE ONE ×2 (10:00→15:27)
[2018-07-18] MEDS: Ringers Solution, Lactated 1,000 ML IVC SCH ×2 (10:00→13:00)
[2018-07-18] MEDS ORDERED: Dexamethasone 4 MG/ML VIAL ONE (10:00)
[2018-07-18] MEDS ORDERED: Lidocaine -MPF 2% 2 ML VIAL ONE (10:00)
[2018-07-18] MEDS ORDERED: Lidocaine -MPF 4% 5 ML AMPUL ONE (10:00)
[2018-07-18] MEDS ORDERED: *HR* Propofol 200 MG/20 ML VIAL IVP ONE (10:01)
[2018-07-18] MEDS ORDERED: *HR* Midazolam HCl 2 MG/2 ML VIAL ONE (10:01)
[2018-07-18] MEDS ORDERED: ceFAZolin 1,000 MG, Sodium Chloride IRRigation 1,000 ML IR ONE (10:45)
[2018-07-18] MEDS ORDERED: Heparin 1,000 UNITS/500 mL 1,500 ML ONE (11:00)
[2018-07-18] MEDS ORDERED: Lidocaine 1% 20 ML MDV ONE (11:00)
[2018-07-18] MEDS ORDERED: EPHEDrine 50 MG/ML VIAL ONE (12:26)
[2018-07-18] MEDS ORDERED: *HR* Heparin 5,000 UNIT/ML VIAL ONE (12:51)
[2018-07-18] MEDS ORDERED: Ondansetron 4 MG/2 ML VIAL IVP PRN (15:24)
[2018-07-18] MEDS ORDERED: Albuterol 2.5 MG/3 ML NEBULIZER IH PRN ×2 (15:24→16:52)
[2018-07-18] MEDS ORDERED: *HR* OxyCODONE Immed Rel 5 MG TABLET PO PRN (15:24)
[2018-07-18] MEDS ORDERED: Acetaminophen IV 1,000 MG/100 ML INFUS..BTL IVPB ONE (15:24)
--- NOTE | 2018-07-18 15:34 | Operative Note ---
Date of procedure: 07/18/18 Pre-op diagnosis: left carotid stenosis Post-op diagnosis: same Procedure: left carotid endarterectomy with 8 Fr shunt and bovine patch angioplasty Complications: none Anesthesia: GETA Surgeon: Jacinto Roth Was there an surgical assistant present: No Estimated blood loss (cc): 150 Specimen: 0 Condition: stable Disposition: PACU Procedure in Detail: History Dawna Chu is a 52-year-old white female who has known carotid artery disease. She was identified as having worsening findings on duplex scan. This led to a carotid artery angiogram. The patient then had a right carotid endarterectomy approximately 3 weeks ago. She now comes to the operating room for a left carotid endarterectomy. Patient has risk factors of diabetes and tobacco abuse. She also has COPD. Procedure After informed consent was obtained the patient was taken to the operating room. General endotracheal anesthesia was established under arterial line pressure monitoring. The left neck was then sterilely prepped and draped. A timeout protocol was observed. An oblique incision was made on the left neck paralleling the anterior border of the sternocleidomastoid muscle. Dissection was carried down to the carotid sheath. It was noted that the patient had a mild amount of jugular chain lymphadenopathy. In addition there were inflammatory changes throughout the carotid sheath with layers of inflammatory change surrounding the carotid artery. After this dissection was complete to isolate and define the arterial anatomy vessels were selectively controlled. 5000 units heparin were administered intravenously. After 3 minutes later the vessels were clamped with the internal carotid artery clamped first. Using an 11 blade knife and Moore scissors the artery was opened in a longitudinal fashion. Dissection was carried proximally distally and then an 8 Portuguese shunt was inserted atraumatically. Patency of the shunt was confirmed by the second of intraoperative Doppler. Evaluation of the plaque revealed a very thickened plaque with its focus primarily at the distal common carotid artery and proximally. The endarterectomy was begun at the distal common carotid and was performed circumferentially. It was carried then proximally and distally. The arteriotomy needed to be extended both proximally and distally in order to remove the plaque. The plaque more proximally appeared to be more irregular than indicated by angiography. After the plaque was removed the bed of the vessel was then carefully inspected for any residual debris. With this done a bovine pericardial patch angioplasty was performed. This was sewn into position using 2 6-0 Prolene sutures. Leaving a small space open on the suture line the shunt was clamped divided and removed. The final few sutures were then placed. The internal was allowed to backbleed and was reclamped. Then the external and common were opened and finally the internal was reopened. The patient tolerated this well and had no hemodynamic distress. Excellent Doppler signals were identified. The wound was then irrigated and hemostasis achieved. A superficial cervical block using half percent Marcaine was performed. The wound was then closed in layers using absorbable suture. A dry sterile dressing was applied. The patient was then extirpated in the operating room. She was found to be neurologically intact. She was taken from the operating room to the recovery room in stable condition.
--- NOTE | 2018-07-18 16:11 | Anesthesia Evaluation Post Op ---
Date of Encounter: 07/18/18 Time of Encounter: 16:10 - Vital Signs Vital Signs: Vital Signs/O2 Sat, Most Current Temp Pulse Resp BP Pulse Ox 98.8 F 102 16 111/58 99 07/18/18 15:43 07/18/18 16:03 07/18/18 16:03 07/18/18 16:03 07/18/18 16:03 - Lungs Lungs: Clear Ascult./Percussion - Airway Airway: Non-obstructed - Cardiovascular Regular Rate - Mental Status Mental Status: Alert & Oriented, Answers Appropriately - Pain Pain Scale: 0 Pain Scale used: Numeric (1 - 10) - Nausea Vomiting Nausea Vomiting: Not Present - Hydration Hydration: Ice chips, Huerta catheter - Discharge PostOp Status: Transfer Patient to floor
[2018-07-18] MEDS ORDERED: Ibuprofen 200 MG TABLET PO PRN (16:52)
[2018-07-18] MEDS ORDERED: *HR* Labetalol 20 MG/4 ML SYRINGE IVP PRN (16:52)
[2018-07-18] MEDS ORDERED: Acetaminophen 325 MG TABLET PO PRN (16:52)
[2018-07-18] MEDS ORDERED: Naloxone 0.4 MG/ML INJ IVP PRN (16:52)
--- NOTE | 2018-07-18 17:01 | Discharge Summary ---
<Terry Luis - Last Filed: 07/19/18 10:44> Orders not resulted at time of discharge: Pending orders 07/16/18 Red Blood Cells [BBK] Routine Date of Encounter: 07/19/18 Time of Encounter: 10:00 - Hospital Course Hospital course: Ms. Chu is a 52 year old female - Time Spent with Patient Total time spent providing and/or coordinating discharge services: - Discharge Medications Home Medications: Albuterol Sulfate [Proair Hfa] 2 puff IH Q4H PRN 06/21/18 [History] Alprazolam [Xanax] 0.5 mg PO Q8H PRN 06/21/18 [History] Aspirin [Adult Aspirin Regimen] 81 mg PO DAILY 06/21/18 [History] Liraglutide [Victoza 2-Juve] 1.8 mg SQ DAILY 06/21/18 [History] Omeprazole [PriLOSEC] 40 mg PO DAILY 06/21/18 [History] Sertraline [Zoloft] 100 mg PO DAILY 06/21/18 [History] Albuterol Neb [Proventil Neb] 2.5 mg IH Q6H PRN 06/27/18 [History] Gabapentin [Neurontin] 800 mg PO TID 06/27/18 [History] Metformin HCl 1,000 mg PO BID 06/27/18 [History] Buprenorphine HCl/Naloxone HCl [Buprenorphin-Naloxon 8-2 mg Sl] 0.5 tab SL DAILY 07/19/18 [History] Gabapentin [Neurontin] 800 mg PO TID 07/19/18 [History] Allergies/Adverse Reactions: 3 Allergy/AdvReac Type Severity Reaction Status Date / Time No Known Allergies Allergy Verified 07/19/18 08:18 Date of admission: 07/18/18 17:05 Primary care physician: Paola Engel, Exam Vital Signs, Last 4 Hours Temp Pulse Resp BP Pulse Ox 07/19/18 07:10 97.8 F 87 18 147/82 97 General: Present: Conversant, No Apparent Distress HEENT: Present: Pupils equal Neck: Present: Other (incision clean, dry and intact without erythema or drainage, no hematoma). Absent: Tracheal deviation Cardiac: Present: Reg Rate and Rhythm Lungs: Present: Normal Breath Sounds Neuro: Present: Alert and responsive, No focal deficits noted Abdomen: Present: Soft, Non-tender Vascular: Present: Normal capillary refill. Absent: Cyanosis, Edema Skin: Present: No rashes noted on visualized skin - Patient Status Disposition: Home, Self-Care Condition: Good Functional capacity at discharge: independent ambulation Overall status at discharge: patient is progressing back to baseline - Discharge Instructions Instructions: Carotid Endarterectomy (DC) Follow Up With: Paola Engel MD [Primary Care Provider] - 07/25/18 11:00 am Jacinto Roth MD [Partnered Physician] - 07/31/18 2:45 pm (This is in [place]. There were no appointments in [place]) Additional Instructions: Use ice pack on left neck incision for the next 2 days at home. No lifting greater than 10 pounds. No automobile driving. No manual labor. Resume usual home medications. Use incentive spirometer at home. Use 10 times an hour while awake. After 2 weeks discard the incentive spirometer. Keep left neck incision dry for 5 days following surgery. - Diet and Activity Activity: increase activity as tolerated Diet: diabetic diet <Jacinto Roth - Last Filed: 07/23/18 07:53> Orders not resulted at time of discharge: Pending orders 07/16/18 Red Blood Cells [BBK] Routine 07/19/18 04:00 Basic Metabolic Panel Routine Complete Blood Count [HEME] AM 0400 Date of Encounter: 07/23/18 - Discharge Diagnosis (1) Carotid artery disease Priority: Primary Status: Chronic Comments: Patient has history of carotid artery disease. She was found on serial outpatient scanning to have exacerbation of her stenosis by duplex scanning. This led to an angiogram. The antrum demonstrated bilateral high-grade stenosis. She had undergone a right carotid endarterectomy approximately 3 weeks ago. The patient was admitted now for the left carotid endarterectomy. Qualifiers: Carotid artery disease type: stenosis Laterality: bilateral Qualified Code(s): I65.23 - Occlusion and stenosis of bilateral carotid arteries (2) Diabetes Priority: Secondary Status: Chronic Comments: Patient has a history of diabetes. She is on Victoza and metformin therapy. Qualifiers: Diabetes mellitus type: type 2 Diabetes mellitus snf insulin use: without snf use Diabetes mellitus complication status: with circulatory complication Diabetes mellitus complication detail: with other circulatory complications Qualified Code(s): E11.59 - Type 2 diabetes mellitus with other circulatory complications (3) COPD (chronic obstructive pulmonary disease) Priority: Secondary Status: Chronic Comments: Patient has chronic COPD. She is a tobacco abuser. Qualifiers: COPD type: unspecified COPD Qualified Code(s): J44.9 - Chronic obstructive pulmonary disease, unspecified - Hospital Course Hospital course: Ms. Chu is a 52 year old female With a history of bilateral carotid artery disease. This was followed by duplex scanning. This demonstrated exacerbation which led to a carotid artery angiogram. This demonstrated bilateral carotid artery stenosis. The patient underwent a right carotid endarterectomy approximately 3 weeks ago. The patient was admitted at this time for the left carotid endarterectomy. She had an uneventful post op course. Patient was neurologically intact and discharged on POD #1. Instructions were given regarding diet and wound care prior to discharge. - Time Spent with Patient Total time spent providing and/or coordinating discharge services: Primary care physician: Paola Engel, Consults: None Procedure(s) Performed: Left carotid endarterectomy with 8 Romansh shunt and bovine pericardial patch angioplasty Anticipated date of discharge: 07/19/18 Exam Vital Signs, Last 4 Hours Temp Pulse Resp BP Pulse Ox 07/18/18 16:23 98.8 F 95 14 119/60 94 07/18/18 16:13 98.8 F 89 14 117/57 94 07/18/18 16:03 102 16 111/58 99 07/18/18 15:53 88 14 119/44 97 07/18/18 15:43 98.8 F 96 16 132/69 95 - Patient Status Functional capacity at discharge: independent ambulation Overall status at discharge: patient is progressing back to baseline - Diet and Activity Activity: increase activity as tolerated Diet: diabetic diet
[2018-07-18] MEDS: traMADol 50 MG TABLET PO PRN ×2 (17:30→23:38)
[2018-07-18] MEDS: *HR* Metformin 500 MG TABLET PO SCH (17:31)
[2018-07-18] MEDS: Nicotine 21 MG PATCH.TD24 TD SCH (19:50)
[2018-07-18] MEDS: ALPRAZolam 0.5 MG TABLET PO PRN (19:55)
[2018-07-19] MEDS ORDERED: Ibuprofen 400 MG TABLET PO PRN (02:45)
[2018-07-19] MEDS: ALPRAZolam 0.5 MG TABLET PO PRN (05:17)
[2018-07-19 05:24] LABS: Basophils % 0.2 %; Eosinophils % 0.1 %; Hematocrit 27.7 % (35.3-44.9); Immature Granulocytes % 0.6 % (0-4); Lymphocytes # 1.9 K/mcL (0.6-4.6); Lymphocytes % 17.5 %; Mean Corpuscular HGB Conc 30.3 g/dL (31.6-35.5); Mean Corpuscular Hemoglobin 25.6 pg (28.0-33.3); Mean Corpuscular Volume 84.5 fL (83.0-100.0); Mean Platelet Volume 9.6 fL (9.4-12.4); Monocytes # 0.8 K/mcL (0.0-1.3); Monocytes % 7.3 %; Platelet Count 295 K/mcL (140-400); Red Blood Count 3.28 M/mcL (3.82-4.97); Red Cell Distribution Width 16.9 % (11.5-14.5); Segmented Neutrophils % 74.3 %
[2018-07-19 05:26] LABS: Hemoglobin 8.4 g/dL (11.5-15.4)
[2018-07-19 05:39] LABS: BUN/Creatinine Ratio 19 (6-26); Blood Urea Nitrogen 11 mg/dL (6-20); Calcium 9.4 mg/dL (8.6-10.3); Carbon Dioxide 27 mEq/L (23-29); Chloride 100 mEq/L (98-107); Glucose 204 mg/dL (70-105); Osmolality,Calculated 285 (280-300); Potassium 4.5 mEq/L (3.5-5.1); Sodium 135 mEq/L (136-145); eGFR For Non-African Americans > 60 (> 60)
[2018-07-19 07:11] VITALS: BP 147/82
[2018-07-19] MEDS: Liraglutide [Victoza 2-Pak] 1.8 MG SQ SCH ×2 (08:11→09:06)
[2018-07-19] MEDS: traMADol 50 MG TABLET PO PRN (08:12)
[2018-07-19] MEDS: *HR* Metformin 500 MG TABLET PO SCH (08:12)
[2018-07-19] MEDS: Nicotine 21 MG PATCH.TD24 TD SCH (08:13)
[2018-07-19] MEDS ORDERED: Aspirin Enteric Coated 81 MG Tablet PO SCH (09:00)
== END 2018-07-19 11:01 | disposition home or self-care (01) | DRG 24 ==
LOC: SAMDAY 09:06 → 2NNU 17:05
PROVIDERS: ADMIT Surgery Vascular Surgery; ATTEND Surgery Vascular Surgery